=== PATIENT | female | born 1995 | race African-American/Black ===

== ENCOUNTER 2017-12-22 22:30 | Emergency (ER) | payer MEDICAID ==
[~2017-12-22] VITALS: Ht 167.6 cm; Wt 63.0 kg
[2017-12-22 23:53] VITALS: BP 125/71
== END 2017-12-23 05:46 | disposition left against medical advice (07) ==
LOC: ER 12-23 05:37
DX: J02.9 Acute pharyngitis, unspecified (principal); R10.10 Upper abdominal pain, unspecified; F12.10 Cannabis abuse, uncomplicated; Z53.21 Procedure and treatment not carried out due to patient leaving prior to being seen by health care provider
CPT/HCPCS: A4315

== ENCOUNTER 2020-03-30 08:42 | Emergency (ER) | payer MEDICAID | END 2020-03-30 09:59 | disposition left against medical advice (07) | LOC: ER 08:54 | DX: Z53.21 Procedure and treatment not carried out due to patient leaving prior to being seen by health care provider (principal) ==